=== PATIENT | female | born 1950 | race Two or more races ===

== ENCOUNTER 2024-09-13 12:01 | Emergency (ER) | payer MEDICAID ==
[~2024-09-13] VITALS: Ht 149.9 cm; Wt 70.5 kg
[2024-09-13] MEDS: DiphenhydrAMINE HCL 25 MG CAPSULE PO ONE (14:03)
[2024-09-13] MEDS: PredniSONE 20 MG TABLET PO ONE (14:40)
[2024-09-13 15:16] VITALS: BP 143/76; PULSE 97; RESP 18; TEMP 98; O2SAT 99
== END 2024-09-13 15:38 | disposition home or self-care (01) ==
LOC: EMS 12:01
DX: L30.9 Dermatitis, unspecified (principal)
CPT/HCPCS: 99283; J7512

== ENCOUNTER 2024-10-20 15:59 | Emergency (ER) | payer MEDICAID ==
[~2024-10-20] VITALS: Ht 149.9 cm; Wt 65.0 kg
[2024-10-20 16:16] VITALS: BP 109/57; PULSE 87; RESP 16; TEMP 98.1; O2SAT 98
[2024-10-20] MEDS ORDERED: PRED-554 PO (17:11)
[2024-10-20] MEDS ORDERED: CEPH-558 PO (17:12)
[2024-10-20] MEDS: PredniSONE 20 MG TABLET PO ONE (17:21)
== END 2024-10-20 17:39 | disposition home or self-care (01) ==
LOC: EMS 15:59
DX: L30.9 Dermatitis, unspecified (principal)
CPT/HCPCS: 99283; J7512